=== PATIENT | male | born 1985 | race Caucasian/White ===

== ENCOUNTER → 2024-04-28 | Outpatient (CLI) | payer OTHER ==
[2024-04-28 11:02] LABS: BASOPHIL % 0.3 % (0.2-1.2); EOSINOPHIL # 0.1 10^3/uL (0.0-0.2); EOSINOPHIL % 1.4 % (0.0-5.0); HEMATOCRIT(ML) 49.5 % (37.0-53.0); HEMOGLOBIN 17.2 g/dL (13.9-16.3); LYMPHOCYTES # 2.03 10^3/uL1 (1.0-4.8); LYMPHOCYTES % 23.6 % (24.0-44.0); MEAN CORP HGB 30.7 pg (26-34); MEAN CORP HGB CONCENTRATION 34.7 g/dL (33-36.5); MEAN CORP VOLUME 88.2 fL (78-100); MONOCYTES # 0.8 10^3/uL (0.3-0.8); MONOCYTES % 9.2 % (5.0-12.0); NEUTROPHIL # 5.5 10^3/uL (1.8-7.7); NEUTROPHILS % 64.5 % (41.0-85.0); RED BLOOD CELL 5.61 10^6/uL (4.50-5.90); RED CELL DISTRIBUTION WIDTH 12.3 % (11.5-14.5); WHITE BLOOD CELL 8.6 10^3/uL (4.5-11.0)
[2024-04-28 11:43] LABS: ALBUMIN(ML) 4.1 g/dL (3.4-5.0); ALBUMIN/GLOBULIN RATIO 1.051; ANION GAP 12.4; BUN/CREATININE RATIO 13.51 (10.0-20.0); CALCIUM 9.5 mg/dL (8.4-10.5); CREATININE SERUM 1.48 mg/dL (0.59-1.40); EST GFR, NON-AA 53.2 (>/=60); POTASSIUM 4.4 mmol/L (3.6-5.2)
== END | disposition home or self-care (01) ==
LOC: LAB 10:32
PROVIDERS: ATTEND Nurse Practitioner Family
DX: E11.65 Type 2 diabetes mellitus with hyperglycemia (principal); I10 Essential (primary) hypertension; G62.9 Polyneuropathy, unspecified; E55.9 Vitamin D deficiency, unspecified; R25.2 Cramp and spasm
CPT/HCPCS: 36415; 80053; 82306; 82607; 82746; 83036; 83735; 84439; 84443; 85025